=== PATIENT | male | born 1995 | race African-American/Black ===

== ENCOUNTER 2017-01-14 13:41 | Emergency (ER) | payer SELFPAY ==
[~2017-01-14] VITALS: Ht 182.9 cm; Wt 75.0 kg
[2017-01-14] MEDS ORDERED: DIPHENHYDRAMINE 50MG CAPSULE PO ONE (16:00)
[2017-01-14] MEDS ORDERED: METOCLOPRAMIDE HCL 10MG TABLET PO ONE (16:00)
[2017-01-14] MEDS ORDERED: KETOROLAC 60MG/2ML VIAL IM ONE (16:00)
[2017-01-14 16:53] VITALS: BP 140/71
== END 2017-01-14 18:26 | disposition home or self-care (01) ==
LOC: ER 14:05
DX: S06.0X9A Concussion with loss of consciousness of unspecified duration, initial encounter (principal); S16.1XXA Strain of muscle, fascia and tendon at neck level, initial encounter; R51 Headache; V89.2XXA Person injured in unspecified motor-vehicle accident, traffic, initial encounter; Y93.89 Activity, other specified; Y92.89 Other specified places as the place of occurrence of the external cause; Y99.8 Other external cause status
CPT/HCPCS: 96372; 99283; J1885; J8597; Q0163